=== PATIENT | male | born 1955 | race Caucasian/White ===

== ENCOUNTER 2018-10-22 15:20 | Emergency (ER) | payer MEDICARE ==
[~2018-10-22] VITALS: Ht 180.3 cm; Wt 90.7 kg
[~2018-10-22 15:20] MED LIST: ASPI81CH PO; ASPI81EC; ASPI81EC PO; BUPR150ER; CALMAGZIN PO; CEPH500; CEPH500 PO; CITA20 PO; DEMEROL PO; DHEA PO; DIPATR PO; GABA300 PO; HYDACE10B PO; HYDACE5 PO; HYDACE5325 PO; LISI20; LISI20 PO; MEPE50 PO; MEPERIDINE PO; MULVITA; MULVITA PO; MULVITMIND PO; ONDA4ODT MM; ONDA8 PO; ONDA8ODT MM; OXYC5 PO; PROM25 PO; PROM50S PR; PROP10 PO; PROP40; PROP40 PO; PROP60; PROP80ER PO; RANI150 PO; RXONDA4ODT MM; RXPROM25S PR; TELM40; TOPI100; TOPI100 PO; ZINC15 PO; ZOLM5 PO
[2018-10-22] MEDS ORDERED: PROP10 PO (15:36)
[2018-10-22] MEDS ORDERED: CALC.25 PO (15:37)
[2018-10-22] MEDS ORDERED: Prilosec Otc20 MG PO (15:37)
== END 2018-10-22 17:04 | disposition home or self-care (01) ==
LOC: ER 15:20
DX: G43.909 Migraine, unspecified, not intractable, without status migrainosus (principal); Z88.8 Allergy status to other drugs, medicaments and biological substances; Z88.5 Allergy status to narcotic agent; Z79.899 Other long term (current) drug therapy; Z79.82 Long term (current) use of aspirin; K21.9 Gastro-esophageal reflux disease without esophagitis; I10 Essential (primary) hypertension; Z86.73 Personal history of transient ischemic attack (TIA), and cerebral infarction without residual deficits; Z87.891 Personal history of nicotine dependence
CPT/HCPCS: 96372; 99283-25; J1100; J1170; J2550; Q0163

== ENCOUNTER 2019-04-27 07:34 | Day surgery (SDC) | payer MEDICARE ==
[~2019-04-27] VITALS: Ht 175 cm; Wt 86.7 kg
[~2019-04-27 07:34] MED LIST changes: +ATOR10 PO; +CALC.25 PO; +Norco 10-325 T1 EACH PO; +Prilosec Otc20 MG PO; +SODBIC650 PO; +THERA-D2000 UNIT PO
--- NOTE | 2019-04-27 08:16 | NUR ---
Ambulatory in Day Surgery. History, Chart, Medications and Allergies reviewed before start of procedure.Patient states colon prep results clear. Patient confirms NPO status and agrees with scheduled surgery. Lungs clear T/O to Auscultation. Patient States Post-Procedure ride home has been arranged.
--- NOTE | 2019-04-27 08:26 | NUR ---
04/27/19 0826 Lizbeth Salazar PATIENT DETERMINED TO BE ASA APPROPRIATE FOR PROPOFOL SEDATION PRIOR TO START OF PROCEDURE BY DR. ROY. 3-LEAD EKG REVIEWED WITH PHYSICIAN PRIOR TO START OF PROCEDURE. PATIENT CONFIRMS NPO STATUS AND AGREES WITH SCHEDULED PROCEDURE. History, Chart, Medications and Allergies reviewed before start of procedure. MONITOR INTACT WITH CONTINUOUS PULSE OXIMETRY AND INTERMITTENT BP. O2 VIA N/C INTACT THROUGHOUT SEDATION/PROCEDURE, 3L.
--- NOTE | 2019-04-27 09:26 | NUR ---
Discharge instructions reviewed with patient. Patient verbalizes understanding. Copy given to patient to take home. PT DENIES NEEDING ANYTHING TO DRINK. Discharged via wheelchair to private car for ride home.
== END 2019-04-27 23:48 | disposition home or self-care (01) ==
LOC: ORSCMMR 07:34 → ORD 08:30 → ORSCMMR 23:48
PROVIDERS: Internal Medicine Gastroenterology
PROC: 0DBH8ZX Excision of Cecum, Via Natural or Artificial Opening Endoscopic, Diagnostic (ICD-10-PCS; principal; 2019-04-27 08:30)
PROC: 0DBN8ZX Excision of Sigmoid Colon, Via Natural or Artificial Opening Endoscopic, Diagnostic (ICD-10-PCS; principal; 2019-04-27 08:30)
DX: Z12.11 Encounter for screening for malignant neoplasm of colon (principal); D12.0 Benign neoplasm of cecum; D12.5 Benign neoplasm of sigmoid colon; Z86.010 Personal history of colon polyps; I10 Essential (primary) hypertension; K21.9 Gastro-esophageal reflux disease without esophagitis; Z79.82 Long term (current) use of aspirin; Z79.899 Other long term (current) drug therapy
CPT/HCPCS: 88305; J2704; J7120

== ENCOUNTER 2019-08-16 16:11 | Emergency (ER) | payer MEDICARE ==
[~2019-08-16] VITALS: Ht 180.3 cm; Wt 86.2 kg
== END 2019-08-16 20:43 | disposition home or self-care (01) ==
LOC: ER 16:11
DX: G43.909 Migraine, unspecified, not intractable, without status migrainosus (principal); I10 Essential (primary) hypertension; K21.9 Gastro-esophageal reflux disease without esophagitis; Z88.8 Allergy status to other drugs, medicaments and biological substances; Z88.5 Allergy status to narcotic agent; Z79.899 Other long term (current) drug therapy; Z79.82 Long term (current) use of aspirin; Z86.73 Personal history of transient ischemic attack (TIA), and cerebral infarction without residual deficits; Z87.891 Personal history of nicotine dependence
CPT/HCPCS: 36415; 96374; 96375; 96376; 99283-25; J1170; J1200; J2550; J7030

== ENCOUNTER → 2019-10-27 | Outpatient (CLI) | payer MEDICARE ==
[2019-10-27 11:44] LABS: Albumin, Blood 3.4 g/dL (3.4-5.0); Anion Gap 6 mmol/L (6-16); Blood Urea Nitrogen 53 mg/dL (8-24); Bun/Creatinine Ratio 22.2 (12.0-20.0); CO2, Blood 24 mmol/L (21-32); Calcium, Blood 7.7 mg/dL (8.5-10.1); Chloride, Blood 118 mmol/L (98-108); Creatinine, Blood 2.39 mg/dL (0.60-1.20); Glomerular Filtration Rate 29 (60-); Glucose, Blood 108 mg/dL (70-99); Phosphorus, Blood 3.9 mg/dL (2.5-4.9); Potassium, Blood 4.4 mmol/L (3.5-5.5); Sodium, Blood 148 mmol/L (136-145)
[2019-10-27 11:47] LABS: Percent Saturation 41.1 % (20.0-50.0)
[2019-11-03 08:09] LABS: A/G RATIO 1.6 (0.7-1.7); ALBUMIN 3.3 g/dL (2.9-4.4); ALPHA-1-GLOBULIN 0.3 g/dL (0.0-0.4); ALPHA-2-GLOBULIN 0.7 g/dL (0.4-1.0); BETA GLOBULIN 0.6 g/dL (0.7-1.3); GAMMA GLOBULIN 0.7 g/dL (0.4-1.8); GLOBULIN, TOTAL 2.2 g/dL (2.2-3.9); IMMUNOGLOBULIN A, QN, SERUM 122 mg/dL (61-437); IMMUNOGLOBULIN G, QN, SERUM 708 mg/dL (603-1613); IMMUNOGLOBULIN M, QN, SERUM 44 mg/dL (20-172); M-SPIKE Not Observed g/dL (Not Observed); PROTEIN, TOTAL, SERUM 5.5 g/dL (6.0-8.5)
== END | disposition home or self-care (01) ==
LOC: LAB SHORT 11:09 → LAB 11:09
PROVIDERS: Internal Medicine Nephrology
DX: N18.5 Chronic kidney disease, stage 5 (principal); D63.1 Anemia in chronic kidney disease; E55.9 Vitamin D deficiency, unspecified; E78.00 Pure hypercholesterolemia, unspecified; D51.8 Other vitamin B12 deficiency anemias; D52.8 Other folate deficiency anemias; D50.9 Iron deficiency anemia, unspecified; R76.9 Abnormal immunological finding in serum, unspecified; R94.5 Abnormal results of liver function studies; R94.6 Abnormal results of thyroid function studies
CPT/HCPCS: 80069; 82607; 82728; 82746; 82784; 83516; 83540; 83550; 84165; 85018; 86334

== ENCOUNTER → 2019-11-24 | Outpatient (CLI) | payer MEDICARE ==
[2019-11-24 17:39] LABS: Albumin, Blood 3.4 g/dL (3.4-5.0); Bilirubin, Total 0.2 mg/dL (0.1-1.0); Bun/Creatinine Ratio 18.1 (12.0-20.0); Calcium, Blood 8.2 mg/dL (8.5-10.1); Creatinine, Blood 3.98 mg/dL (0.60-1.20); Globulin, Blood 3.3 g/dL (2.2-4.0); Total Protein, Blood 6.7 g/dL (6.4-8.2)
[2019-11-24 18:29] LABS: BASOPHILS ABSOLUTE AUTO 0.04 K/mm3 (0.00-0.23); BASOPHILS PERCENT AUTO 1 % (0-2); EOSINOPHILS ABSOLUTE AUTO 0.25 K/mm3 (0.00-0.68); EOSINOPHILS PERCENT AUTO 5 % (0-6); Hemoglobin 11.5 g/dL (13.5-17.5); IMMATURE GRAN ABSOLUTE AUTO 0.01 K/mm3 (0.00-0.10); IMMATURE GRAN PERCENT AUTO 0 % (0-1); LYMPHOCYTES ABSOLUTE AUTO 1.71 K/mm3 (0.84-5.20); LYMPHOCYTES PERCENT AUTO 37 % (21-46); MONOCYTES ABSOLUTE AUTO 0.38 K/mm3 (0.16-1.47); MONOCYTES PERCENT AUTO 8 % (4-13); Mean Corpuscular HGB 31.6 pg (26.0-34.0); Mean Corpuscular HGB Conc 31.9 g/dL (31.5-36.5); Mean Corpuscular Volume 99 fL (80-100); Mean Platelet Volume 10.1 fL (9.1-12.4); NEUTROPHILS ABSOLUTE AUTO 2.29 K/mm3 (1.96-9.15); NEUTROPHILS PERCENT AUTO 49 % (41-73); Platelet Count 144 K/mm3 (150-400); RDW Coefficient Variation 13.6 % (11.7-14.2); RDW Standard Deviation 50.4 fL (35.1-46.3); Red Blood Cell Count 3.64 M/mm3 (4.30-5.90); White Blood Cell Count 4.68 K/mm3 (4.00-11.30)
== END | disposition home or self-care (01) ==
LOC: LAB SHORT 16:55 → LAB 16:55
PROVIDERS: Nurse Practitioner
DX: N28.9 Disorder of kidney and ureter, unspecified (principal); R41.82 Altered mental status, unspecified
CPT/HCPCS: 80053; 85025

== ENCOUNTER 2021-09-19 01:09 | Emergency (ER) | payer MEDICARE ==
[~2021-09-19] VITALS: Ht 180.3 cm; Wt 81.7 kg
[~2021-09-19 01:09] MED LIST changes: -ASPI81EC PO; +Aspirin EC81 MG PO; +ESCI10 PO; +FINA5 PO; +Inderal 20 mg T20 MG PO; +TAMSULOSIN HCL0.4 M1 PO
[2021-09-19 02:25] LABS: BASOPHILS ABSOLUTE AUTO 0.04 K/mm3 (0.00-0.23); BASOPHILS PERCENT AUTO 1 % (0-2); EOSINOPHILS ABSOLUTE AUTO 0.15 K/mm3 (0.00-0.68); EOSINOPHILS PERCENT AUTO 3 % (0-6); Hematocrit 34.7 % (37.0-53.0); IMMATURE GRAN ABSOLUTE AUTO 0.01 K/mm3 (0.00-0.10); IMMATURE GRAN PERCENT AUTO 0 % (0-1); LYMPHOCYTES ABSOLUTE AUTO 0.76 K/mm3 (0.84-5.20); LYMPHOCYTES PERCENT AUTO 17 % (21-46); MONOCYTES ABSOLUTE AUTO 0.48 K/mm3 (0.16-1.47); MONOCYTES PERCENT AUTO 10 % (4-13); Mean Corpuscular HGB 31.5 pg (26.0-34.0); Mean Corpuscular HGB Conc 31.7 g/dL (31.5-36.5); Mean Corpuscular Volume 99 fL (80-100); Mean Platelet Volume 10.5 fL (9.1-12.4); NEUTROPHILS ABSOLUTE AUTO 3.16 K/mm3 (1.96-9.15); NEUTROPHILS PERCENT AUTO 69 % (41-73); Platelet Count 155 K/mm3 (150-400); RDW Coefficient Variation 14.5 % (11.7-14.2); RDW Standard Deviation 53.1 fL (35.1-46.3); Red Blood Cell Count 3.49 M/mm3 (4.30-5.90)
[2021-09-19 02:42] LABS: International Normalized Ratio 1.04; Prothrombin Time Results 10.9 Sec (9.7-11.5)
[2021-09-19 02:45] LABS: Albumin, Blood 3.3 g/dL (3.4-5.0); Bilirubin, Total 0.3 mg/dL (0.1-1.0); Bun/Creatinine Ratio 27.1 (12.0-20.0); Calcium, Blood 8.1 mg/dL (8.5-10.1); Creatinine, Blood 2.07 mg/dL (0.60-1.20); Globulin, Blood 3.3 g/dL (2.2-4.0); Potassium, Blood 4.9 mmol/L (3.5-5.5); Total Protein, Blood 6.6 g/dL (6.4-8.2)
[2021-09-19] MEDS ORDERED: Vibramycin100 MG PO (03:30)
== END 2021-09-19 03:47 | disposition home or self-care (01) ==
LOC: ER 01:09
PROVIDERS: Emergency Medicine
DX: L03.115 Cellulitis of right lower limb (principal); N18.30 Chronic kidney disease, stage 3 unspecified; I12.9 Hypertensive chronic kidney disease with stage 1 through stage 4 chronic kidney disease, or unspecified chronic kidney disease; K21.9 Gastro-esophageal reflux disease without esophagitis; E78.5 Hyperlipidemia, unspecified; G43.909 Migraine, unspecified, not intractable, without status migrainosus; Z87.891 Personal history of nicotine dependence; Z79.899 Other long term (current) drug therapy; Z88.5 Allergy status to narcotic agent; Z88.8 Allergy status to other drugs, medicaments and biological substances
CPT/HCPCS: 80053; 83605; 85025; 85610; 93971; 99284-25; A9270

== ENCOUNTER 2022-01-19 12:08 | Emergency (ER) | payer MEDICARE ==
[~2022-01-19] VITALS: Ht 180.3 cm; Wt 83.9 kg
[~2022-01-19 12:08] MED LIST changes: +Vibramycin100 MG PO
[2022-01-19] MEDS ORDERED: Prinivil10 MG PO (14:36)
[2022-01-19] MEDS ORDERED: GABA300 PO (14:36)
[2022-01-19] MEDS ORDERED: ESCI10 PO (14:37)
[2022-01-19] MEDS ORDERED: ATOR20 PO (14:37)
[2022-01-19] MEDS ORDERED: PROP10 PO (14:37)
[2022-01-19] MEDS ORDERED: OMEP20ER PO (14:37)
[2022-01-19] MEDS ORDERED: CALC.25 PO (14:37)
[2022-01-19] MEDS ORDERED: DONE5 PO (14:38)
[2022-01-19] MEDS ORDERED: ONDA4ODT MM (14:38)
[2022-01-19] MEDS ORDERED: FINA5 PO (14:38)
[2022-01-19] MEDS ORDERED: ASPI81CH PO (14:38)
[2022-01-19] MEDS ORDERED: TOPI100 PO (14:38)
[2022-01-19] MEDS ORDERED: HYDACE10B PO (14:39)
[2022-01-19] MEDS ORDERED: ESZO2 PO (14:39)
== END 2022-01-19 16:27 | disposition home or self-care (01) ==
LOC: ER 12:08
DX: S22.41XA Multiple fractures of ribs, right side, initial encounter for closed fracture (principal); I10 Essential (primary) hypertension; Z79.899 Other long term (current) drug therapy; W22.09XA Striking against other stationary object, initial encounter; Z79.82 Long term (current) use of aspirin
CPT/HCPCS: 71250; J1170

== ENCOUNTER 2022-09-17 17:28 | Inpatient (IN) | payer MEDICARE ==
[~2022-09-17] VITALS: Ht 185.4 cm; Wt 74.8 kg
[~2022-09-17 17:28] MED LIST changes: +ATOR20 PO; +DONE5 PO; +ESZO2 PO; +OMEP20ER PO; +Prinivil10 MG PO
[2022-09-17 18:33] LABS: BASOPHILS ABSOLUTE AUTO 0.05 K/mm3 (0.00-0.23); BASOPHILS PERCENT AUTO 1 % (0-2); EOSINOPHILS PERCENT AUTO 6 % (0-6); Hematocrit 30.6 % (37.0-53.0); Hemoglobin 10.1 g/dL (13.5-17.5); IMMATURE GRAN ABSOLUTE AUTO 0.01 K/mm3 (0.00-0.10); IMMATURE GRAN PERCENT AUTO 0 % (0-1); LYMPHOCYTES ABSOLUTE AUTO 1.75 K/mm3 (0.84-5.20); LYMPHOCYTES PERCENT AUTO 32 % (21-46); MONOCYTES ABSOLUTE AUTO 0.56 K/mm3 (0.16-1.47); MONOCYTES PERCENT AUTO 10 % (4-13); Mean Corpuscular HGB 32.2 pg (26.0-34.0); Mean Corpuscular Volume 98 fL (80-100); Mean Platelet Volume 9.4 fL (9.1-12.4); NEUTROPHILS ABSOLUTE AUTO 2.82 K/mm3 (1.96-9.15); NEUTROPHILS PERCENT AUTO 51 % (41-73); Platelet Count 166 K/mm3 (150-400); RDW Coefficient Variation 13.3 % (11.7-14.2); RDW Standard Deviation 47.5 fL (35.1-46.3); Red Blood Cell Count 3.14 M/mm3 (4.30-5.90); White Blood Cell Count 5.49 K/mm3 (4.00-11.30)
[2022-09-17 19:19] LABS: Albumin/Globulin Ratio 1.4 (0.8-1.8); Bilirubin, Total 0.3 mg/dL (0.1-1.0); Bun/Creatinine Ratio 11.9 (12.0-20.0); Calcium, Blood 8.1 mg/dL (8.5-10.1); Creatinine, Blood 4.13 mg/dL (0.60-1.20); Globulin, Blood 2.2 g/dL (2.2-4.0); Potassium, Blood 6.2 mmol/L (3.5-5.5); Total Protein, Blood 5.2 g/dL (6.4-8.2)
--- NOTE | 2022-09-17 23:31 | NUR ---
ARRIVAL TO PCU 15 PT ARRIVED TO PCU 15 AT 2205 VIA ED BED AND WAS ABLE TO AMBULATE TO PCU BED. HE IS A/O X4, MAKES HIS NEEDS KNOWN, AND ANSWERS QUESTIONS APPROPRIATLY. AFEBRILE. RA; NO C/O DYSPNEA. HR 100-110. BP IMPROVING WITH SBP 120'S; NO DIZZINESS WHILE AMBULATING TO BED. LIMITED ROM TO BUE D/T INJURIES AND SURGERIES FROM A YEAR AGO. HE AMBULATES SAFELY TO THE BATHROOM. D5 1/2NS INFUSING AT 100ML/HR AT ARRIVAL. CBG CHECK AN HOUR AFTER ARRIVAL AND WAS 212; D5 1/2NS PLACED ON SB AND WILL RECHECK IN AN HOUR. POTASSIUM DRAWN AGAIN AND SHOWING IMPROVEMENT. PAIN STILL NOTED TO RT SCIATIC NERVE, PRN NORCO GIVEN, REPOSITIONING HELPS. SEE ADMISSION ASSESSMENT FOR FULL ASSESSMENT.
[2022-09-18 05:36] LABS: Bun/Creatinine Ratio 15.1 (12.0-20.0); Calcium, Blood 8.4 mg/dL (8.5-10.1); Creatinine, Blood 3.05 mg/dL (0.60-1.20)
--- NOTE | 2022-09-18 05:44 | NUR ---
UPDATE MORNING LABS SHOW POTASSIUM 6.0. CALL MADE TO DR BECERRA WHO PROVIDED ORDERS FOR 5 UNITS OF IV INSULIN NOW. D5 1/2NS ON SB SINCE 0 D/T GLUCOSE BEING 231. DR BECERRA STATED TO KEEP THE D5 1/2 NS ON SB BUT ON THE EMAR AND TO MONITOR GLUCOSE AFTER 5UNITS OF INSULIN GIVEN.
--- NOTE | 2022-09-18 06:19 | NUR ---
END OF SHIFT SUMMARY NO ACUTE EVENTS OVER NIGHT. PT ABLE TO SLEEP SINCE 0000. NO CHANGES IN NEURO STATUS. ON RA. AFEBRILE. HR 90-110. BP STABLE WITH SBP 120-130'S. PT SAFELY AMBULATES TO THE BATHROOM INDEPENDENTLY. PRN NORCO GIVEN X2 FOR SCIATIC PAIN/ SHOULDER PAIN. WILL REPORT TO AM RN WHEN AVAILABLE.
--- NOTE | 2022-09-18 10:29 | NUR ---
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 NS GTT AT 75 ORDERED AND SODIUM BICARB 650MG TAB ORDERED FOR DAILY.
--- NOTE | 2022-09-18 16:45 | NUR ---
UPDATE PT BLOOD SUGAR CAME BACK AT 88 WHEN CHECKED AT 1633. PREVIOUS BLOOD SUGAR OF [address] NOTIFIED OF DROP IN BLOOD SUGAR AND THAT PT IS NOT RECIEVING INSULIN AND HAS BEEN EATING. DR ORDERED Q4 BLOOD SUGAR CHECKS, ORDERS PLACED BY THIS RN.
--- NOTE | 2022-09-18 17:45 | NUR ---
SHIFT SUMMARY PT A/OX4 AND COOPERATIVE OF CARE. PT ABLE TO LET NEEDS BE KNOWN AND CALLS APPROPIATE. VSS THROUGHOUT SHIFT WITH O2 SATS IN THE 90'S ON RA. NO REPORT OF CHEST PAIN/PRESSURE THROUGHOUT SHIFT. NO REPORT OF SOB/DYSPNEA THROUGHOUT SHIFT. NEPHROLOGY CONSULTED TODAY. PT REPORTED A MIGRAINE TODAY, FIORCET ORDERED ONE-TIME DOSE, PT REPORTS SOME RELIEF. PT INDEPENDENT IN ROOM. BLOOD SUGAR LABLILE, Q4 BLOOD SUGAR ORDERED.
[2022-09-19 04:03] LABS: Hematocrit 31.1 % (37.0-53.0); Hemoglobin 10.2 g/dL (13.5-17.5)
[2022-09-19 04:19] LABS: Albumin, Blood 2.9 g/dL (3.4-5.0); Anion Gap 2 mmol/L (6-16); Blood Urea Nitrogen 40 mg/dL (8-24); Bun/Creatinine Ratio 21.6 (12.0-20.0); CO2, Blood 24 mmol/L (21-32); Calcium, Blood 8.2 mg/dL (8.5-10.1); Chloride, Blood 117 mmol/L (98-108); Creatinine, Blood 1.85 mg/dL (0.60-1.20); Glomerular Filtration Rate 39 (60-); Glucose, Blood 117 mg/dL (70-99); Magnesium, Blood 2.2 mg/dL (1.6-2.4); Phosphorus, Blood 3.6 mg/dL (2.5-4.9); Potassium, Blood 4.7 mmol/L (3.5-5.5); Sodium, Blood 143 mmol/L (136-145)
--- NOTE | 2022-09-19 06:52 | NUR ---
SHIFT SUMMARY: PT IS A&OX4. DENIES ANY SOB OR CHEST PAIN DURING THIS SHIFT. HR SINUS RHYTHM IN THE 80'S. NO PEAKED T WAVES OBSERVED. O2 SATS > 92% ON RA. PT UP AMBULATING TO BATHROOM WITH STEADY GAIT, POSTURE ERECT. VOIDING WITHOUT DIFFICULTY. MEDICATED TO CHRONIC PAIN X 2, SEE EMAR. IV FLUIDS INFUSING ORDERED. AT APPROXIMATELY 0400 PT REPORTS PAIN AT LEFT FORARM IV SITE. MODERATE SWELLING NOTED. IV FLUIDS STOPED, IV REMOVED. ARM ELEVATED ON PILLOW AND WARM COMPRESS PLACED ON ARM. IV FLUIDS NOW INFUSING INTO IV IN RIGHT WRIST, PT DENIES ANY PAIN, NO SWELLING OR LEAKAGE NOTED. NO ACUTE CHANGES NOTED DURING THIS SHIFT.
--- NOTE | 2022-09-19 07:15 | NUR ---
Received report from Kay B[facility]. Patient is sitting up in bed and is independnet with positioning and ambulation to bathroom. He is on RA and sats >90%. MAEW. He is alert and oriented and is able to communicate his needs. He has 20ga IV to RW and is infusing NS at 75ml/hr. His CBG is 112 and has no coverage needed. His temp is 97.5. Fluids and call light within reach of patient.
--- NOTE | 2022-09-19 11:40 | NUR ---
Patient was given written discharge instructions and reviewed appt. and new and old medications. Patient returned understanding. Pulled IV intact. Patient got dressed with at bedside and PCT took out to car and went home POV with all presonal belongings.
--- NOTE | 2022-09-19 11:41 | NUR ---
Patient remains alert and oriented. He remains on RA and sats >90%. Dr Trejo by and is marilyn to discharge home. Patient request medication for pain and medicated per MAR. He remains independent in room and with care. No significant changes with patient. NS continues at 75 ml/hr.
[2022-09-19] MEDS ORDERED: HYDR1TAB94 PO (11:51)
[2022-09-19] MEDS ORDERED: SODBIC650 PO (12:00)
[2022-09-19] MEDS ORDERED: LOKELMA10 GM PO (12:01)
== END 2022-09-19 12:51 | disposition home or self-care (01) | DRG 683 ==
LOC: ER 17:28 → PCU 22:05
PROVIDERS: Internal Medicine Nephrology; Student in an Organized Health Care Education/Training Program; ADMIT Internal Medicine
DX: N17.9 Acute kidney failure, unspecified (principal); E87.20 Acidosis, unspecified; N18.4 Chronic kidney disease, stage 4 (severe); K21.9 Gastro-esophageal reflux disease without esophagitis; D63.1 Anemia in chronic kidney disease; I12.9 Hypertensive chronic kidney disease with stage 1 through stage 4 chronic kidney disease, or unspecified chronic kidney disease; G43.909 Migraine, unspecified, not intractable, without status migrainosus; I95.9 Hypotension, unspecified; E87.5 Hyperkalemia; M54.41 Lumbago with sciatica, right side; E16.2 Hypoglycemia, unspecified; Z96.652 Presence of left artificial knee joint; Z87.891 Personal history of nicotine dependence; Z86.73 Personal history of transient ischemic attack (TIA), and cerebral infarction without residual deficits; Z98.890 Other specified postprocedural states; Z88.5 Allergy status to narcotic agent; Z88.6 Allergy status to analgesic agent; Z88.8 Allergy status to other drugs, medicaments and biological substances; Z79.82 Long term (current) use of aspirin; Z79.899 Other long term (current) drug therapy
CPT/HCPCS: 36415; 76770; 80048; 80053; 80069; 82947; 83605; 83735; 84132; 85014; 85018; 85025; 93005; 93010; 94644; 94664; 96361; 96365; 96375; 96376; 99291-25; A9270; J0610; J1100; J1644; J1815; J7030; J7042; J7050; J7799